=== PATIENT | female | born 1995 | race Caucasian/White ===

== ENCOUNTER 2021-02-16 12:14 | Inpatient (IN) | payer BC ==
[~2021-02-16] VITALS: Ht 177.8 cm; Wt 98.4 kg
[~2021-02-16 12:14] MED LIST: KEFLEX CAP 500500 MG PO; ZOFRAN ODT 4 MG4 MG PO
[2021-02-16 13:51] LABS: HEMOGLOBIN 13.5 gm/dl (12.3-15.3); RED BLOOD COUNT 4.5 M/UL (4.00-5.10); WHITE BLOOD COUNT 9.5 K/UL (4.5-11.0)
[2021-02-16 14:16] LABS: BUN/CREATININE RATIO 12 (0-10)
[2021-02-17 06:55] LABS: HEMOGLOBIN 12.1 gm/dl (12.3-15.3); RED BLOOD COUNT 4.16 M/UL (4.00-5.10)
[2021-02-17 06:59] LABS: WHITE BLOOD COUNT 6.5 K/UL (4.5-11.0)
[2021-02-17 07:21] LABS: BUN/CREATININE RATIO 12 (0-10)
[2021-02-18 06:42] LABS: HEMOGLOBIN 11.9 gm/dl (12.3-15.3); RED BLOOD COUNT 4.04 M/UL (4.00-5.10); WHITE BLOOD COUNT 6.8 K/UL (4.5-11.0)
[2021-02-18 07:04] LABS: BUN/CREATININE RATIO 11 (0-10)
== END 2021-02-18 15:37 | disposition home or self-care (01) | DRG 440 ==
LOC: ER1 12:14 → CDU 15:17 → MED SURG 4 16:50
PROVIDERS: Emergency Medicine; Physician Assistant; Physician Assistant Medical; ADMIT Internal Medicine
DX: K85.90 Acute pancreatitis without necrosis or infection, unspecified (principal); Z20.822 Contact with and (suspected) exposure to COVID-19; J44.9 Chronic obstructive pulmonary disease, unspecified; Z82.49 Family history of ischemic heart disease and other diseases of the circulatory system; Z98.818 Other dental procedure status
CPT/HCPCS: 36415; 76705; 80053; 80061; 81001; 83690; 84703; 85025; 85027; 99285; C9113; J1200; J1885; J2270; J2405; J7030; J7120; U0002

== ENCOUNTER → 2021-03-29 | Outpatient (CLI) | payer BC | LOC: HEART 5 10:30 | DX: R00.2 Palpitations (principal) | CPT/HCPCS: 93306 ==

== ENCOUNTER → 2021-06-14 | Outpatient (CLI) | payer BC, OTHER | LOC: MAMO 10:59 | DX: Z12.31 Encounter for screening mammogram for malignant neoplasm of breast (principal) | CPT/HCPCS: 77063; 77067 ==

== ENCOUNTER → 2021-06-28 | Outpatient (CLI) | payer OTHER, BC | LOC: US 13:03 | DX: R92.8 Other abnormal and inconclusive findings on diagnostic imaging of breast (principal) | CPT/HCPCS: 76641; 77065; G0279 ==

== ENCOUNTER 2021-11-29 11:48 | Observation (INO) | payer BC, OTHER ==
[~2021-11-29] VITALS: Ht 177.8 cm; Wt 95.7 kg
[2021-11-29 12:19] LABS: HEMOGLOBIN 13.1 gm/dl (12.3-15.3); RED BLOOD COUNT 4.51 M/UL (4.00-5.10); WHITE BLOOD COUNT 8.1 K/UL (4.5-11.0)
[2021-11-29 12:45] LABS: BUN/CREATININE RATIO 13 (0-10)
[2021-11-29] MEDS ORDERED: SERTRALINE HCL50 MG PO (16:06)
[2021-11-30 04:06] LABS: HEMOGLOBIN 11.8 gm/dl (12.3-15.3); RED BLOOD COUNT 4.13 M/UL (4.00-5.10); WHITE BLOOD COUNT 7.5 K/UL (4.5-11.0)
[2021-11-30 04:39] LABS: BUN/CREATININE RATIO 11 (0-10)
--- NOTE | 2021-11-30 11:27 | NUR ---
informed dr. lawler of patient reporting of heaviness on her chest after giving dilaudid. mother and patient stated that its normal for her to have that effect. reported also that when I gave to patient I gave it slow and did not push with normal saline and just allow the IVF to push the dilaudid. dr. lawler acknowledged and stated will write new order
[2021-12-01 04:21] LABS: HEMOGLOBIN 11.5 gm/dl (12.3-15.3); RED BLOOD COUNT 3.98 M/UL (4.00-5.10); WHITE BLOOD COUNT 7.2 K/UL (4.5-11.0)
[2021-12-01 07:43] LABS: BUN/CREATININE RATIO 9 (0-10)
--- NOTE | 2021-12-01 11:20 | NUR ---
[facility] NOTIFIED. AM MEDS NOT GIVEN LATE. PROBLEM DOCUMENTING WITH [employer]. WILL CONTINUE TO MONITOR.
== END 2021-12-01 18:07 | disposition home or self-care (01) ==
LOC: ER1 11:48 → CDU 14:18 → MED SURG 4 14:18
PROVIDERS: Emergency Medicine; Physician Assistant; ADMIT Internal Medicine
DX: K85.90 Acute pancreatitis without necrosis or infection, unspecified (principal); R19.7 Diarrhea, unspecified; F32.A Depression, unspecified; Z79.899 Other long term (current) drug therapy; Z88.5 Allergy status to narcotic agent; Z91.040 Latex allergy status
CPT/HCPCS: 36415; 78226; 80053; 80061; 81001; 83690; 83735; 84703; 85025; 96374; 96375; 96376; 99285; A9537; C9113; G0378; J1170; J1885; J2405; J2550; Q9967

== ENCOUNTER → 2021-12-20 | Outpatient (CLI) | payer BC, OTHER ==
[~2021-12-20] MED LIST changes: +SERTRALINE HCL50 MG PO
[2021-12-20 11:57] LABS: HEMOGLOBIN 13.7 gm/dl (12.3-15.3); RED BLOOD COUNT 4.69 M/UL (4.00-5.10); WHITE BLOOD COUNT 7.7 K/UL (4.5-11.0)
[2021-12-20 13:04] LABS: BUN/CREATININE RATIO 15 (0-10)
== END ==
LOC: LAB 11:18
PROVIDERS: Registered Nurse
DX: K85.90 Acute pancreatitis without necrosis or infection, unspecified (principal)
CPT/HCPCS: 36415; 80053; 82150; 83690; 85027

== ENCOUNTER → 2022-01-05 | Outpatient (CLI) | payer BC, OTHER | LOC: MRI 09:46 | DX: K85.90 Acute pancreatitis without necrosis or infection, unspecified (principal); R79.89 Other specified abnormal findings of blood chemistry | CPT/HCPCS: 36415; 74181; 82150; 83690 ==

== ENCOUNTER → 2022-01-18 | Day surgery (SDC) | payer BC, OTHER ==
[~2022-01-18] VITALS: Ht 165.1 cm; Wt 94.3 kg
[~2022-01-18] MED LIST changes: +INDERAL TAB 4040 MG PO; +PROTONIX40 MG PO; +VISTARIL25 MG PO; +VRAYLAR1.5 MG PO
== END | disposition home or self-care (01) ==
LOC: OR 09:07
DX: K29.50 Unspecified chronic gastritis without bleeding (principal); R10.13 Epigastric pain; E66.9 Obesity, unspecified
CPT/HCPCS: 84703; J2704; J7040